=== PATIENT | male | born 1975 | race American Indian/Alaskan Native ===

== ENCOUNTER 2019-04-03 01:48 | Emergency (ER) | payer SELFPAY ==
[2019-04-03 02:02] VITALS: BP 145/92
--- NOTE | 2019-04-03 03:32 | Emergency Department Report ---
Chief Complaint: Upper Respiratory Infection Stated Complaint: FLU SX/NIETO/PINS AND NEEDLES SENSATION - HPI History of Present Illness: Patient is a 43-year-old male with no past medical history who presents to the ED with complaint of acute onset persistent nasal and sinus congestion for 2 weeks mild dry cough. Patient states that in the last 3 days his symptoms have significantly improved and now is able to sleep well with no coughing and congestion has also resolved. Patient states that he came to the ED for evaluation after reading a lot of information in the indeterminate which scared him. Patient denies fever, chills, nausea, vomiting, abdominal pain, chest pain, dizziness, shortness of breath, sore throat, headache or dysuria and urinary frequency and urgency. - ROS Review of Systems: Review of system: Constitutional: denies: chills, fever Eyes: denies: eye pain, eye discharge, vision change ENT: denies: ear pain, throat pain Respiratory: denies: cough, shortness of breath, wheezing Cardiovascular: denies: chest pain, palpitations Endocrine: no symptoms reported Gastrointestinal: denies: abdominal pain, nausea, diarrhea Genitourinary: denies: urgency, dysuria Musculoskeletal: Denies back pain, arthralgia or myalgia. denies: joint swelling Skin: denies: rash, lesions Neurological: denies: headache, weakness, paresthesias Psychiatric: denies: anxiety, depression Hematological/Lymphatic: denies: easy bleeding, easy bruising - Exam Vital Signs: Vital Signs 04/03/19 01:59 Temperature 98.6 F Pulse Rate 82 Respiratory 18 Rate Blood Pressure 145/92 O2 Sat by Pulse 98 Oximetry Physical Exam: . Physical exam: Patient is alert and oriented 3 and is not in distress. HEENT: Normocephalic and atraumatic Eyes: PERRLA, EOMI, no conjunctivitis or injury, vision is intact Ears: Bilateral tympanic membrane pink and normal, normal hearing acuity Nose: Clear nasal passages, turbinates are clear, no epistaxis Throat: No swelling, oral lesions, oropharynx pink and patent, uvula midline Respiratory: Lungs are clear bilaterally with no adventitious lung sounds Cardiac: Regular rate and rhythm, normal heart sounds. No murmurs or gallops Abdomen: Soft, nontender with normal bowel sounds Musculoskeletal: No injuries, swelling or tenderness. Neuro: Cranial nerves II-XII intact. Normal reflexes. Skin: No rashes MSE screening note: Focused history and physical exam performed. Due to findings the patient was discharged home and advised follow-up with his primary care physician as needed for further evaluation. Patient was also advised to return to the ED immediately if symptoms get worse. Patient discussed with doctor:: EUNICE SANTOS ED Medical Decision Making - Medical Decision Making This is a 43-year-old male who presented to the ED with URI symptoms for 2 weeks which have since resolved. Patient was discharged home as he currently does not have any emergency complaint treated. Patient was advised to follow-up with his primary care physician as needed or return to the ED immediately if symptoms get worse. - Differential Diagnosis Nonemergent URI ED Disposition for MSE Clinical Impression: Upper respiratory infection, acute Disposition: Z-07 MED SCREENING EXAM-LEFT Is pt being admited?: No Does the pt Need Aspirin: No Condition: Stable Instructions: Viral Syndrome (ED), Cold Symptoms (ED) Additional Instructions: FOLLOW UP WITH YOUR PRIMARY CARE PHYSICIAN NEEDED. TAKE OVER THE COUNTER TYLENOL OR IBUPROFEN NEEDED Referrals: EUNICE SANTOS MD [Staff Physician] - 3-5 Days Time of Disposition: 03:37 Print Language: PERSIAN
== END 2019-04-03 03:40 | disposition left against medical advice (07) ==
LOC: ED 01:48
DX: J06.9 Acute upper respiratory infection, unspecified (principal)
CPT/HCPCS: 99282